=== PATIENT | female | born 1955 | race Caucasian/White ===

== ENCOUNTER 2018-07-07 03:26 | Inpatient (IN) ==
--- NOTE | 2018-06-23 08:01 | EKG Report ---
Test Performed on : 06/23/2018 07:58:10 AM Test Reason : PAT Blood Pressure : / mmHG Vent. Rate : 091 BPM Atrial Rate : 091 BPM P-R Int : 162 ms QRS Dur : 082 ms QT Int : 362 ms P-R-T Axes : 057 026 063 degrees QTc Int : 445 ms Normal sinus rhythm. Normal ECG No previous ECGs available Confirmed by Maile MURRIETA, Moises Rodriguez ([id number]) on 06/24/2018 7:09:14 AM
[2018-06-23 10:29] LABS: URINE SOURCE CLEAN CATCH
[2018-06-23 10:43] LABS: BASO# 0.05 X1000 (0.0-0.2); BASO% 0.9 % (0.0-0.8); EOS# 0.08 X1000 (0.0-0.7); EOS% 1.4 % (0.0-10.0); HEMATOCRIT 41.7 % (37.0-47.0); HEMOGLOBIN 13.4 g/dL (12.0-16.0); LYMPH# 1.74 X1000 (1.2-3.4); LYMPH% 30.3 % (20.5-51.1); MCH 27.7 PG (27-31); MCHC 32.1 g/dL (33-37); MCV 86.2 FL (81-99); MONO# 0.53 X1000 (0.11-0.59); MONO% 9.2 % (1.7-9.3); MPV 12.7 FL (7.4-10.4); NEUT# 3.34 X1000 (1.4-6.5); NEUT% 58.2 % (42.2-75.2); PLT 264 X1000 (130-400); RBC 4.84 XMIL (4.2-5.4); RDW 13.8 % (11.5-14.5); WBC 5.74 X1000 (4.8-10.8)
[2018-06-23 10:49] LABS: BILIRUBIN URINE NEGATIVE (NEGATIVE); BLOOD URINE NEGATIVE (NEGATIVE); COLOR STRAW; GLUCOSE URINE NEGATIVE (NEGATIVE); KETONE URINE NEGATIVE (NEGATIVE); LEUKOCYTES URINE NEGATIVE (NEGATIVE); NITRITE URINE NEGATIVE (NEGATIVE); PROTEIN URINE NEGATIVE (NEGATIVE); TURBIDITY URINE CLEAR (CLEAR); UROBILINOGEN URINE NORMAL (NORMAL)
[2018-06-23 10:52] LABS: UR EPITHELIAL CELLS <10 /HPF (<10); URINE BACTERIA NEGATIVE /HPF; URINE RBC <10 /HPF (<10); URINE WBC <10 /HPF (<10)
[2018-06-23 10:58] LABS: AGAP 14; BUN 13 mg/dL (8-22); CALCIUM 9.8 mg/dL (8.8-10.2); CHLORIDE 99 mmol/L (98-107); COSMO 280; CREATININE 0.9 mg/dL (0.5-0.9); ESTIMATED GFR > 60; GLUCOSE 143 mg/dL (70-104); POTASSIUM 3.8 mmol/L (3.5-5.1); SODIUM 139 mmol/L (136-145); TCO2 26 mmol/L (25-35)
[2018-06-23 11:44] LABS: INR 0.93; PROTIME 13.2 Seconds (11.0-16.0)
[2018-06-23 11:46] LABS: PTT 38.9 Seconds (22.3-41.8)
[2018-07-07] MEDS ORDERED: COLACE ONE (06:24)
[2018-07-07] MEDS ORDERED: PEPCID ONE (06:25)
[2018-07-07] MEDS ORDERED: REGLAN ONE (06:25)
[2018-07-07] MEDS ORDERED: LYRICA ONE (06:25)
[2018-07-07] MEDS ORDERED: CELEBREX ONE (06:26)
[2018-07-07] MEDS ORDERED: KEFZOL 1 GM/D5W 1 GM/50 ML IVPB ONE (06:26)
[2018-07-07] MEDS ORDERED: LR 1,000 ML ONE (06:26)
[2018-07-07] MEDS ORDERED: DIPRIVAN 1% ONE (06:40)
[2018-07-07] MEDS ORDERED: XYLOCAINE-MPF 2% ONE (06:40)
[2018-07-07] MEDS ORDERED: ZEMURON ONE (06:41)
[2018-07-07] MEDS ORDERED: MARCAINE 0.25% PF ONE (06:52)
[2018-07-07] MEDS ORDERED: DURAMORPH ONE (06:52)
[2018-07-07] MEDS ORDERED: EXPAREL 1.3% ONE (06:52)
[2018-07-07] MEDS ORDERED: CYKLOKAPRON 1,000 MG/NS 1,000 MG/100 ML IVPB ONE (06:52)
[2018-07-07] MEDS ORDERED: NEOSPORIN G.U. IRRIGANT ONE (06:52)
[2018-07-07] MEDS ORDERED: TORADOL ONE ×2 (06:52→07:38)
[2018-07-07] MEDS ORDERED: SODIUM CHLORIDE 0.9% ONE (07:00)
[2018-07-07] MEDS ORDERED: DECADRON ONE ×2 (07:38→08:16)
[2018-07-07] MEDS ORDERED: ZOFRAN ONE (07:38)
[2018-07-07 08:19] LABS: URINE SOURCE CATH
[2018-07-07] MEDS ORDERED: ROBINUL ONE (08:21)
[2018-07-07 08:36] LABS: BILIRUBIN URINE NEGATIVE (NEGATIVE); BLOOD URINE NEGATIVE (NEGATIVE); COLOR YELLOW; GLUCOSE URINE NEGATIVE (NEGATIVE); KETONE URINE NEGATIVE (NEGATIVE); LEUKOCYTES URINE NEGATIVE (NEGATIVE); NITRITE URINE NEGATIVE (NEGATIVE); PH URINE 6.5; PROTEIN URINE NEGATIVE (NEGATIVE); TURBIDITY URINE CLEAR (CLEAR); UR EPITHELIAL CELLS <10 /HPF (<10); URINE BACTERIA NEGATIVE /HPF; URINE RBC <10 /HPF (<10); URINE WBC <10 /HPF (<10); UROBILINOGEN URINE NORMAL (NORMAL)
--- NOTE | 2018-07-07 09:10 | OPERATIVE NOTE ---
PROCEDURE DATE: 07/07/2018 PREOPERATIVE DIAGNOSIS: Right glenohumeral arthritis with chronic rotator cuff tear. POSTOPERATIVE DIAGNOSIS: Right glenohumeral arthritis with chronic rotator cuff tear. PROCEDURE: Right reverse shoulder arthroplasty with DePuy Delta Xtend size 10, Press-Fit stem, a 38 + 3 humeral cup, a 38 eccentric Glenosphere and a standard metaglene. SURGEON: Harry Larsen MD. 1ST CABLE WEAVER: SHANE Tellez 2ND CABLE WEAVER: Javad Park RN. ANESTHESIA: General. IV FLUIDS: 1200 mL lactated Ringers. ESTIMATED BLOOD LOSS: 150 mL. COMPLICATIONS: None. INDICATION: The patient is a pleasant 63-year-old female with a chronic history of pain and discomfort in her right shoulder. She states approximately 2 years ago she sustained a fall and her pain never completely resolved. MRI was obtained and revealed a chronic rotator cuff tear as well as glenohumeral arthritis. Recommendation to proceed with right reverse shoulder arthroplasty was offered. Risks and benefits of surgery were explained, including risk of anesthesia, , bleeding, infection, failure to relieve pain, postoperative stiffness, nerve injury, blood clots, and other imponderables. All questions were answered. Patient and family wished to proceed with surgery. DETAILS OF OPERATION: The patient was taken to the operating room and placed supinely on the operating table. Once adequate anesthesia was obtained, patient was placed in a right lateral semi-[place] beach-chair position. The right shoulder was subsequently prepped and draped in usual sterile fashion. A standard deltopectoral incision was made with a skin knife. Medial and skin envelopes developed. Hemostasis was obtained using electrocautery. The deltopectoral interval was then developed. Retractors were then placed. Stay suture was placed in the medial aspect of the subscapularis tendon and this was then released approximately 1 cm medial to its insertion. The patient had a very large chronic rotator cuff tear superiorly and posteriorly. The head was then reduced and dislocated anteriorly. A starting reamer was then passed to the intramedullary canal. This was reamed up to a size 10. An intramedullary guide was then placed in position in approximately 10 to 15 degrees of retroversion and the humeral head was resected. After this had been performed, the protective disk was placed. Attention was then turned to the glenoid. Circumferential dissection with a deep knife. The guide was then placed in position, guide pin was placed. Reaming was then conducted. Central hole was then dilated. A standard medically was then impacted in position. Three locking screws and one nonlocking screw was placed. The wound was copiously irrigated with antibiotic irrigation. A standard 38 eccentric Glenosphere was then placed with the eccentricity placed inferiorly. It had good purchase. Attention was then turned to the proximal humerus. The intramedullary guide was placed in position approximately 15 degrees of retroversion and reaming was then conducted. Intramedullary canal was copiously irrigated with antibiotic pulsatile lavage. The size 10 Press-Fit stem was then placed with autologous and impaction bone grafting and had good fit. Trial cup size was determined to be a 38+ 3 humeral cup. It had excellent stability and range of motion. The cup was then removed. The wound was copiously irrigated. A 38+ 3 humeral cup was then placed. Exparel was placed in deep soft tissue. The wound was copiously irrigated. #2 FiberWire was used to repair the subscapularis tendon. Remaining portion of the Exparel was placed in the deep soft tissue, as well as subcutaneous tissue. The wound was copiously irrigated once again with antibiotic pulsatile lavage. 2-0 Vicryl then used to repair the subcutaneous tissue, followed by running 2-0 Prolene. Benzoin and Steri-Strips were applied. Adaptic, 4x4s, ABD pad, and tape was applied to the right shoulder, followed by shoulder immobilizer. All counts were correct. The patient tolerated the procedure well and was transferred to the recovery room in stable condition. cc: Harry Larsen MD
[2018-07-07] MEDS ORDERED: NS 1,000 ML ONE (09:27)
[2018-07-07] MEDS: DILAUDID ONE ×2 (09:27→19:41)
--- NOTE | 2018-07-07 09:49 | Diag Imaging Result Doc PS360 ---
EXAM: SHOULDER 1 VIEW RIGHT 07/07/2018 HISTORY: R TSA TECHNIQUE: Right shoulder one view portable at 0940 COMMENT: There is a total shoulder arthroplasty. There is no evidence of acute fracture or dislocation. IMPRESSION: Postsurgical change. Electronically signed by Sebastián Madison 07/07/2018 9:47 AM
[2018-07-07] MEDS ORDERED: ZOFRAN PO PRN (10:30)
[2018-07-07] MEDS ORDERED: OXY IR PO PRN ×2 (10:30)
[2018-07-07] MEDS ORDERED: MORPHINE IV PRN ×3 (10:30)
[2018-07-07] MEDS ORDERED: NS 1,000 ML IV SCH (10:30)
[2018-07-07] MEDS ORDERED: CYKLOKAPRON 1,000 MG in NS 100 ML IV ONE (13:20)
[2018-07-07] MEDS: KEFZOL 1 GM/D5W 1 GM/50 ML IVPB IV SCH ×3 (16:20→22:55)
[2018-07-07] MEDS: GLUCOPHAGE PO SCH (16:21)
[2018-07-07] MEDS: PERIDEX MT SCH (21:30)
[2018-07-07] MEDS: MACRODANTIN PO SCH (21:30)
[2018-07-08] MEDS: SYNTHROID PO SCH ×2 (05:39→07:27)
--- NOTE | 2018-07-08 06:23 | PROGRESS NOTE ---
DATE: 07/08/2018 SUBJECTIVE: The patient is a 63-year-old female who is 1 day status post right reverse shoulder arthroplasty. She is currently resting comfortably. OBJECTIVE: On physical exam, the dressing is intact. She is neurovascularly intact distally. Good internet site designer strength. LABS: Pending. IMPRESSION: Postoperative day #1 status post right total reverse shoulder arthroplasty. PLAN: At this point, the patient will be discharged home. We will arrange for home physical therapy. She will follow up on 07/19/2018. cc: Harry Larsen MD
[2018-07-08 06:31] LABS: HEMATOCRIT 31.3 % (37.0-47.0); HEMOGLOBIN 10.2 g/dL (12.0-16.0)
[2018-07-08 06:53] LABS: AGAP 10; BUN 10 mg/dL (8-22); CALCIUM 8.8 mg/dL (8.8-10.2); CHLORIDE 103 mmol/L (98-107); COSMO 273; CREATININE 0.8 mg/dL (0.5-0.9); ESTIMATED GFR > 60; GLUCOSE 102 mg/dL (70-104); SODIUM 137 mmol/L (136-145); TCO2 24 mmol/L (25-35)
[2018-07-08 07:17] VITALS: BP 132/64
[2018-07-08] MEDS: MACRODANTIN PO SCH (08:30)
[2018-07-08] MEDS: PERIDEX MT SCH (08:30)
[2018-07-08] MEDS: GLUCOPHAGE PO SCH (08:30)
[2018-07-08] MEDS ORDERED: VITAMIN D PO SCH (09:00)
[2018-07-08] MEDS ORDERED: HYZAAR 50/12.5 MG PO SCH (09:00)
[2018-07-08] MEDS ORDERED: PEPCID PO SCH (09:00)
== END 2018-07-08 11:00 | disposition home health service (06) | DRG 483 ==
LOC: SURHOLD 03:26 → 4N 08:19
PROVIDERS: ADMIT Orthopaedic Surgery Adult Reconstructive Orthopaedic Surgery; ATTEND Orthopaedic Surgery Adult Reconstructive Orthopaedic Surgery
CPT/HCPCS: 73020; 80048; 81001; 82948; 85014; 85018; 85025; 85610; 85730; 86850; 86900; 86901; 88305; 88311; 93005; 93010; 94799; 97162; 97530; A9270; C1713; C9290; J0690; J1100; J1170; J1885; J2274; J2275; J2405; J7030; J7120; Q9974; S0020; XXXXX